=== PATIENT | female | born 2000 | race Two or more races ===

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

== ENCOUNTER 2018-01-12 11:33 | Emergency (ER) | payer OTHER ==
[~2018-01-12] VITALS: Ht 160 cm; Wt 65.8 kg
[2018-01-12 11:39] VITALS: Ht 160 cm; Wt 65.8 kg
[2018-01-12 12:47] LABS: BASOPHIL % 0.5 % (0-2)
[2018-01-12 12:48] LABS: PLATELET COUNT 434 x10^3mcL (130-400); RED CELL DISTRIBUTION WIDTH 18.2 % (11.5-14.5)
[2018-01-12 12:59] LABS: microscopic required? YES; urine erythrocyte NEGATIVE (NEGATIVE)
[2018-01-12 13:18] LABS: CALCIUM 8.9 mg/dL (8.5-10.1); CARBON DIOXIDE 29.2 mmol/L (21-32); CHLORIDE SERUM 104 mmol/L (98-107); CREATININE SERUM 0.7 mg/dL (0.6-1.0); GFR1 > 60 mL/min; GLUCOSE SERUM 91 mg/dL (74-106); POTASSIUM SERUM 3.8 mmol/L (3.5-5.1); SODIUM SERUM 140 mmol/L (136-145)
[2018-01-12 13:23] LABS: ALBUMIN 4.2 g/dL (3.4-5.0); ALKALINE PHOSPHATASE 56 U/L (46-116); ALT/SGPT 22 U/L (14-59); AST/SGOT 16 U/L (15-37); BILIRUBIN TOTAL 0.26 mg/dL (0.20-1.00); LIPASE 106 IU/L (73-393)
[2018-01-12 13:24] LABS: TOTAL PROTEIN, SERUM 8.6 g/dL (6.4-8.2)
[2018-01-12 14:32] VITALS: BP 119/72
== END 2018-01-12 14:32 | disposition home or self-care (01) ==
LOC: ED 11:33
PROVIDERS: Emergency Medicine
DX: K29.00 Acute gastritis without bleeding (principal); D50.9 Iron deficiency anemia, unspecified; Z90.89 Acquired absence of other organs
CPT/HCPCS: 36415

== ENCOUNTER 2018-09-23 15:37 | Emergency (ER) | payer OTHER ==
[~2018-09-23] VITALS: Ht 157.5 cm; Wt 61.2 kg
[2018-09-23 15:51] VITALS: Ht 157.5 cm; Wt 61.2 kg
[2018-09-23 16:42] LABS: BASOPHIL % 1.1 % (0-2); PLATELET COUNT 272 x10^3mcL (130-400)
[2018-09-23 16:46] LABS: RED CELL DISTRIBUTION WIDTH 24.9 % (11.5-14.5)
[2018-09-23 17:17] LABS: CALCIUM 9.4 mg/dL (8.5-10.1); CARBON DIOXIDE 23.7 mmol/L (21-32); CHLORIDE SERUM 102 mmol/L (98-107); CREATININE SERUM 0.7 mg/dL (0.6-1.0); GFR1 > 60 mL/min; GLUCOSE SERUM 82 mg/dL (74-106); POTASSIUM SERUM 3.5 mmol/L (3.5-5.1); SODIUM SERUM 139 mmol/L (136-145)
[2018-09-23 17:21] LABS: ALBUMIN 3.8 g/dL (3.4-5.0); ALKALINE PHOSPHATASE 37 U/L (46-116); ALT/SGPT 28 U/L (14-59); AST/SGOT 17 U/L (15-37); BILIRUBIN TOTAL 0.3 mg/dL (0.20-1.00); LIPASE 115 IU/L (73-393); TOTAL PROTEIN, SERUM 8.2 g/dL (6.4-8.2)
[2018-09-23 17:32] LABS: FREE T4 1.07 ng/dL (0.76-1.46); FREE THYROXINE INDEX 3.3 ug/dL (1.4-4.5); T4(THYROXINE) 11.1 ug/dL (4.7-13.3)
[2018-09-23 17:48] LABS: T3 TOTAL 1.64 ng/mL
[2018-09-23 18:42] VITALS: BP 128/75
== END 2018-09-23 18:42 | disposition home or self-care (01) ==
LOC: ED 15:37
PROVIDERS: Emergency Medicine
DX: R10.11 Right upper quadrant pain (principal); R51 Headache
CPT/HCPCS: 36415; 84439; Q0162

== ENCOUNTER 2018-12-25 22:32 | Emergency (ER) | payer SELFPAY ==
[~2018-12-25] VITALS: Ht 160 cm; Wt 60.3 kg
[2018-12-25 22:50] VITALS: BP 121/77; Ht 160 cm; Wt 60.3 kg
== END 2018-12-26 00:51 | disposition left against medical advice (07) ==
LOC: ED 22:32
DX: Z53.21 Procedure and treatment not carried out due to patient leaving prior to being seen by health care provider (principal)